=== PATIENT | female | born 2000 ===

== ENCOUNTER 2020-11-13 15:36 | Emergency (ER) | payer SELFPAY ==
[~2020-11-13] VITALS: Ht 152.4 cm; Wt 63.6 kg
[2020-11-13 15:46] VITALS: TEMP 98.2
[2020-11-13 16:16] LABS: COLLECTION METHOD CLEAN CATCH
[2020-11-13 16:44] LABS: PH 6 (5-8); SQUAMOUS EPITHELIAL 0-2 /hpf; URINE APPEARANCE Clear; URINE BACTERIA None Seen /hpf; URINE BILIRUBIN Negative (NEGATIVE); URINE BLOOD Negative (NEGATIVE); URINE COLOR Yellow; URINE GLUCOSE Negative (NEGATIVE); URINE KETONE Negative (NEGATIVE); URINE LEUKOCYTE ESTERASE Trace (NEGATIVE); URINE NITRATE Negative (NEGATIVE); URINE PROTEIN(semi-quant) Negative (NEGATIVE); URINE RBC 0-2 /hpf; URINE UROBILINOGEN Negative (NEGATIVE)
[2020-11-13 17:17] LABS: BASO # 0.1 (0.0-0.2); BASO % 0.6 % (0.0-2.0); EOS # 0.1 (0.0-0.7); EOS % 1.5 % (0-4.0); GRAN # 5.1 (1.4-6.5); GRAN % 58.9 % (42.2-75.2); HEMOGLOBIN 11.3 g/dl (12.0-15.0); LYMPH # 2.4 (1.2-3.4); LYMPH % 28.3 % (20.0-51.0); MEAN CELL VOLUME 89 fl (80.0-95.0); MEAN CORPUSCULAR HEMOGLOBIN 28 pg (26.0-32.0); MEAN CORPUSCULAR HGB CONC 32 g/dl (33.0-37.0); MEAN PLATELET VOLUME 10.7 fl (7.4-10.4); MONO # 0.9 (0.1-0.6); MONO % 10.5 % (1.7-9.3); PLATELET COUNT 333 K/mm3 (130-400); RED BLOOD COUNT 4.03 M/mm3 (4.10-5.30); REDCELL DISTRIBUTION WIDTH-CV 13.9 % (11.5-14.5)
[2020-11-13 17:18] LABS: HEMATOCRIT 35.8 % (35.0-45.0)
[2020-11-13 17:42] LABS: ALANINE AMINOTRANSFERASE 33 U/L (4-34); ALBUMIN 4.3 gm/dL (3.5-5.0); ALKALINE PHOSPHATASE 84 U/L (50-136); ANION GAP 6 mmol/L (7-16); AST,SGOT 32 U/L (15-37); BILIRUBIN,TOTAL < 0.1 mg/dL (0.0-1.0); BLOOD UREA NITROGEN 11 mg/dL (7-17); CALCIUM 9.1 mg/dL (8.4-10.2); CARBON DIOXIDE 28 mmol/L (22-30); CHLORIDE 106 mmol/L (98-107); CREATININE, serum 0.63 (0.52-1.25); GLUCOSE 84 mg/dL (74-106); LIPASE 105 U/L (23-300); POTASSIUM 3.8 mmol/L (3.4-5.0); SODIUM 140 mmol/L (137-145); TOTAL PROTEIN 7.5 gm/dL (6.4-8.2)
[2020-11-13 17:45] LABS: C-REACTIVE PROTEIN < 0.5 mg/dL (0.0-0.9)
[2020-11-13 18:16] VITALS: BP 120/68; PULSE 71
== END 2020-11-13 18:16 | disposition home or self-care (01) ==
LOC: COL.ER 15:36
PROVIDERS: Nurse Practitioner Primary Care
DX: R10.33 Periumbilical pain (principal); Z32.02 Encounter for pregnancy test, result negative
CPT/HCPCS: J7030

== ENCOUNTER 2021-01-30 01:13 | Emergency (ER) | payer OTHER ==
[~2021-01-30] VITALS: Ht 149.9 cm; Wt 65.0 kg
[2021-01-30 01:22] VITALS: TEMP 98.2
[2021-01-30 01:39] LABS: BASO % 0.5 % (0.0-2.0); EOS # 0.2 (0.0-0.7); EOS % 2.4 % (0-4.0); GRAN # 4.6 (1.4-6.5); GRAN % 52.6 % (42.2-75.2); HEMOGLOBIN 11.3 g/dl (12.0-15.0); LYMPH # 3.1 (1.2-3.4); LYMPH % 35.3 % (20.0-51.0); MEAN CELL VOLUME 90 fl (80.0-95.0); MEAN CORPUSCULAR HEMOGLOBIN 28 pg (26.0-32.0); MEAN CORPUSCULAR HGB CONC 31 g/dl (33.0-37.0); MEAN PLATELET VOLUME 10.8 fl (7.4-10.4); MONO # 0.8 (0.1-0.6); PLATELET COUNT 295 K/mm3 (130-400); RED BLOOD COUNT 4.04 M/mm3 (4.10-5.30); REDCELL DISTRIBUTION WIDTH-CV 13.6 % (11.5-14.5)
[2021-01-30 01:40] LABS: HEMATOCRIT 36.3 % (35.0-45.0)
[2021-01-30 01:49] LABS: ALBUMIN 4.3 gm/dL (3.5-5.0); BILIRUBIN,TOTAL 0.1 mg/dL (0.0-1.0); CALCIUM 8.9 mg/dL (8.4-10.2); CREATININE, serum 0.72 (0.52-1.25); POTASSIUM 3.9 mmol/L (3.4-5.0); TOTAL PROTEIN 7.3 gm/dL (6.4-8.2)
[2021-01-30] MEDS ORDERED: PROVERA 10MG10 MG PO (02:02)
[2021-01-30] MEDS ORDERED: VOLTAREN 75 DR75 MG PO (02:02)
[2021-01-30 02:24] VITALS: BP 121/78; PULSE 88
== END 2021-01-30 02:24 | disposition home or self-care (01) ==
LOC: COL.ER 01:13
PROVIDERS: Emergency Medicine
DX: N93.8 Other specified abnormal uterine and vaginal bleeding (principal); Z32.02 Encounter for pregnancy test, result negative

== ENCOUNTER 2021-04-08 14:34 | Emergency (ER) | payer SELFPAY ==
[~2021-04-08] VITALS: Ht 149.9 cm; Wt 63.6 kg
[~2021-04-08 14:34] MED LIST: PROVERA 10MG10 MG PO; VOLTAREN 75 DR75 MG PO
[2021-04-08 15:24] VITALS: BP 115/70; TEMP 98
[2021-04-08 18:03] LABS: STREP SCREEN NEGATIVE
[2021-04-08 18:38] VITALS: PULSE 79
== END 2021-04-08 18:37 | disposition home or self-care (01) ==
LOC: COL.ER 14:34
PROVIDERS: Nurse Practitioner
DX: J06.9 Acute upper respiratory infection, unspecified (principal); N93.8 Other specified abnormal uterine and vaginal bleeding; Z20.822 Contact with and (suspected) exposure to COVID-19

== ENCOUNTER 2021-09-03 16:39 | Emergency (ER) | payer SELFPAY ==
[~2021-09-03] VITALS: Ht 152.4 cm; Wt 66.8 kg
[2021-09-03 17:23] LABS: COLLECTION METHOD CLEAN CATCH
[2021-09-03 17:29] LABS: MUCOUS Present (NOT PRESENT); PH 8 (5-8); URINE APPEARANCE Clear (CLEAR/HAZY); URINE BACTERIA None Seen /hpf (NONE SEEN); URINE BILIRUBIN Negative (NEGATIVE); URINE BLOOD Negative (NEGATIVE); URINE COLOR Yellow (YELLOW); URINE GLUCOSE Negative (NEGATIVE); URINE KETONE Negative (NEGATIVE); URINE LEUKOCYTE ESTERASE Negative (NEGATIVE); URINE NITRATE Negative (NEGATIVE); URINE PROTEIN(semi-quant) Negative (NEGATIVE); URINE RBC 0-2 /hpf (0-2); URINE UROBILINOGEN Negative (NEGATIVE)
[2021-09-03 17:55] LABS: BASO # 0.1 K/mm3 (0.0-0.2); BASO % 0.6 % (0.0-2.0); EOS # 0.1 K/mm3 (0.0-0.7); EOS % 1.3 % (0.0-4.0); GRAN # 4.9 K/mm3 (1.4-6.5); GRAN % 54.1 % (42.2-75.2); HEMATOCRIT 37.1 % (35.0-45.0); HEMOGLOBIN 12.1 g/dl (12.0-15.0); LYMPH # 3.2 K/mm3 (1.2-3.4); MEAN CELL VOLUME 87 fl (80.0-95.0); MEAN CORPUSCULAR HEMOGLOBIN 29 pg (26-32); MEAN CORPUSCULAR HGB CONC 33 g/dl (33.0-37.0); MEAN PLATELET VOLUME 10.7 fl (7.4-10.4); MONO # 0.8 K/mm3 (0.1-0.6); MONO % 8.8 % (1.7-9.3); PLATELET COUNT 292 K/mm3 (130-400); RED BLOOD COUNT 4.25 M/mm3 (4.10-5.30); REDCELL DISTRIBUTION WIDTH-CV 13.5 % (11.5-14.5)
[2021-09-03 18:17] LABS: ALBUMIN 4.2 gm/dL (3.5-5.0); BILIRUBIN,TOTAL 0.4 mg/dL (0.2-1.2); C-REACTIVE PROTEIN 0.47 mg/dL (0.00-0.50); CALCIUM 9.4 mg/dL (8.4-10.2); CREATININE, serum 0.67 mg/dL (0.57-1.11); POTASSIUM 3.7 mmol/L (3.5-4.5); TOTAL PROTEIN 7.2 gm/dL (6.2-8.1)
[2021-09-03 20:44] VITALS: BP 119/69; PULSE 90; TEMP 98.1
== END 2021-09-03 20:44 | disposition home or self-care (01) ==
LOC: COL.ER 16:39
PROVIDERS: Emergency Medicine; Nurse Practitioner
DX: R10.11 Right upper quadrant pain (principal); Z32.02 Encounter for pregnancy test, result negative
CPT/HCPCS: J1170; J2405; J7030; Q9967